=== PATIENT | male | born 1955 | race Caucasian/White ===

== ENCOUNTER 2023-02-28 08:47 | Outpatient (OUT) | payer MEDICARE, SELFPAY ==
--- NOTE | 2023-02-28 08:53 | VEIN_ITS ---
Patient: SKYLAR HOLT Exam Date: 02/28/2023 : 1955 Gender:M Ordering : IAN EPPS Admission #: [id number] Family : BRITT DYE C Order #: [id number] CLICK HERE TO VIEW EXAM RADIOLOGY REPORT PROCEDURE: VC EXT VENOUS REFLUX NORBERT LMTD COMPARISON: None. INDICATIONS: I83.813 Pain due to varicose veins of bilateral legs TECHNIQUE: Duplex imaging of the lower extremity to assess the deep and superficial venous system for the presence of deep or superficial venous incompetence and to document the location and severity of disease. The study includes evaluation of the great saphenous vein (GSV), anterior accessory saphenous vein (AASV) and small saphenous vein (SSV). Patient scanned in reverse Trendelenburg and standing. FINDINGS: RIGHT LOWER EXTREMITY: Saphenofemoral Junction Reflux: Yes 9.1mm 4.8 sec GSV: Diam (mm) Reflux/ Time (sec) Proximal Thigh 10.2 Yes 4.9 Mid Thigh 6.6 Yes 3.8 Distal Thigh 6.5 Yes 4.8 Prox Calf 7.9 Yes 4.1 Mid Calf 3.5 Yes 3.1 Saphenopopliteal Junction Reflux: 3.7mm Yes 0.3 SSV: Proximal Calf 3.8 Yes 0.5 Mid Calf 2.7 Yes 0.3 AASV: Not present Thrombi: No acute or chronic thrombus. Compressibility: Normal. Flow: Severe deep venous reflux. Preforator: Distal medial lower leg 4.0 mm with 4.2s reflux. Proximal medial lower leg 4.9 mm with 0.9s reflux. Tech Note: Thigh extension of SSV. Incompetent varicose vein medial knee measures 5.4 mm with 3.1s reflux. Mid medial lower leg varicose vein measures 6.1 mm with 1.2s reflux. Varicose vein medial distal lower leg measures 4.2 mm with 0.9s reflux. LEFT LOWER EXTREMITY: Saphenofemoral Junction Reflux: Yes 12.5 mm 4.8 sec GSV: Diam (mm) Reflux/Time (sec) Proximal Thigh 13.4 Yes 4.2 Mid Thigh 7.2 Yes 4.8 Distal Thigh 6.8 Yes 4.8 Prox Calf 7.2 Yes 4.4 Mid Calf 4.5 Yes 3.9 Saphenopopliteal Junction Relux: 2.6 mm Yes 0.4 SSV: Proximal Calf 2.8 Yes 0.3 Mid Calf 3.3 Yes 0.3 AASV: Proximal Thigh 3.2 No Mid Thigh 2.4 Yes 0.2 Distal Thigh Thrombi: No acute or chronic thrombus. Compressibility: Normal. Flow: Moderate to severe deep venous reflux. Coal Loader: Medial ankle distal to wound 4.3 mm, 1.1s reflux. Medial ankle prox to wound 4.2 mm, 1.3s reflux. Dist medial lower leg 5.3 mm, 3.7s reflux. Tech Note: Thigh extention of SSV. 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 Incompetent varicose vein proximal medial lower leg measures 10.3 mm with 4.8s reflux. Mid medial lower leg varicose vein measures 8.8 mm with 3.0s reflux. Mid lateral lower leg varicose vein measures 2.7 mm with 1.3s reflux. Varicose vein distal medial lower leg measures 5.5 mm with 1.2s reflux. CONCLUSION: 1. Severe bilateral great saphenous vein venous insufficiency with saphenofemoral junction reflux and dilatation 2. Moderate bilateral incompetent perforating veins with multiple incompetent perforating veins related to his left ankle wound 3. 4.4 cm left inguinal mass, indeterminate 4. Bilateral incompetent varicose veins measuring up to 8.8 mm Dictated by: Marino Desouza MD on 02/28/2023 at 10:09 Approved by: Marino Desouza MD on 02/28/2023 at 10:12
--- NOTE | 2023-02-28 08:53 | VEIN_ITS ---
Patient: SKYLAR HOLT Exam Date: 02/28/2023 : 1955 Gender:M Ordering : IAN CORNELIUS Admission #: [id number] Family : Order #: [id number] CLICK HERE TO VIEW EXAM RADIOLOGY REPORT PROCEDURE: FACILITY [facility] VEIN [facility] - OFFICE VISIT INITIAL COMPARISON: None. PROGRESS NOTES: 67-year-old male who presents with 10-15 years of lower extremity varicose veins. The patient developed leg aching and cramping approximately 5 years ago with significant swelling of the left leg approximately 6 months ago resulting in a nonhealing venous stasis ulceration of the left ankle. The patient was referred by Dr. Cornelius from the [facility] wound center. The patient reports that his symptoms are significantly exacerbated by prolonged sitting and standing and partially relieved by rest, leg elevation and compression stockings which she has worn intermittently for approximately 3 years. The ankle wound has progressed to approximately 2 cm and not improved over the last 2 months. The patient is semi-retired from the [email or web address]. The patient denies any signs and symptoms to suggest arterial ischemia. The patient describes a family history significant for varicose veins and Pick's disease in his father. Patient drinks alcohol daily, I did alcohol and drug counselor him on drinking only 1-2 drinks per day as a limit. No illicit or prescription drug miss use. The patient has never smoked. No known drug allergies. No surgical history. No history of deep venous thrombus or pulmonary embolus. See separate history and physical for medication list. No prior treatment for varicose or spider veins. Nursing notes were reviewed. After history and physical exam I discussed at length the pathophysiology of venous hypertension and possible treatments, therapies and strategies available. We discussed at length the importance of elevating the lower extremities above the level of the heart, increased physical activity and compression stocking use. We discussed alternatives including compression stockings with conservative treatment, surgical interventions including ligation and stripping and phlebectomy. We discussed intravenous laser ablation and micro foam chemical ablation at length. The risks benefits and alternatives were explained. The patient's questions were answered. Ultrasound venous reflux study performed the same day was discussed at length with the patient. The report demonstrates severe bilateral great saphenous vein venous insufficiency. Bilateral incompetent perforating veins. Extensive bilateral incompetent varicose veins, left greater than right PHYSICAL EXAM: The right leg demonstrates moderate varicose and reticular veins. No active ulceration. No significant subcutaneous edema. Mild hemosiderin staining. The left leg demonstrates extensive large varicose veins. 2 cm active ulceration medial left ankle. Mild to moderate subcutaneous edema distal lower leg and ankle. Moderate hemosiderin staining. Both thighs, legs and feet were symmetrically warm to the touch. Good posterior tibial and dorsalis pedis pulses were present bilaterally. [facility]IN[facility] IMPRESSION: 1. Severe bilateral great saphenous vein venous insufficiency with saphenofemoral junction reflux and dilatation. Bilateral incompetent perforating vein 2. Moderate right and severe left lower extremity varicose veins 3. Mild left lower extremity subcutaneous edema 4. No definite flow significant arterial disease 5. CEAP: 6C, Ep, As, Pr PLAN: 1. Endovenous laser ablation left great saphenous vein followed by right great saphenous vein followed by left perforating veins associated with active ulcer 2. Micro foam chemical ablation bilateral incompetent varicose vein 3. Long-term use of bilateral thigh or knee high 20-30 mm compression stockings 4. Elevated legs and continued physical activity for symptomatic relief Nurse notes, history and physical were reviewed and confirmed, see attached forms. The nurse was present throughout the physical exam and consultation Dictated by: Marino Desouza MD on 02/28/2023 at 10:37 Approved by: Marino Desouza MD on 02/28/2023 at 10:53
== END 2023-02-28 08:48 | disposition home or self-care (01) ==
LOC: VC 08:50
PROVIDERS: PCP Podiatrist Foot & Ankle Surgery; Visit Provider Podiatrist Foot & Ankle Surgery
DX: I83.813 Varicose veins of bilateral lower extremities with pain (principal)
CPT/HCPCS: 93970; G0463

== ENCOUNTER 2023-03-26 10:14 | Outpatient (OUT) | payer MEDICARE, SELFPAY ==
--- NOTE | 2023-03-26 | VEIN_ITS ---
The [address] [address] Patient Name: SKYLAR HOLT MRN: [id number] date: 1955 Sex: M Assigned Patient Location: Current Patient Location: Accession/Order Number: [id number] Exam Date: 03/26/2023 10:30 Report Date: 03/26/2023 11:55 At the request of: BELLA GARZA Procedure: VC Endovenous Ablation 1VeinLT EXAMINATION: VC Endovenous Ablation 1Vein left great saphenous vein HISTORY: Pain due to varicose veins of bilateral legs I83.813 COMPARISON: No relevant comparison available. TECHNIQUE: The risks and benefits of the procedure had been previously discussed, and were rediscussed at length. Informed written consent was obtained. Janelle Pedro and Adi Jacobs assisted. Time out procedure was performed. The left lower extremity was prepared and draped in the usual sterile fashion to allow knee flexion in the sterile field. Duplex ultrasound probe was draped in a sterile cover, sterile transmission gel was used. Venous mapping was performed with the areas of dilation and large tributaries marked. The total length was 46 cm from the entry 10 cm below the knee to 3 cm below the saphenofemoral junction. The great saphenous vein below this region was not amenable to 2 masses seen due to extensive network of overlying markedly dilated varicose veins. The diameter of the greater saphenous vein ranged from 5-13 mm. A 30 gauge needle and 1% buffered lidocaine was used to anesthetize the entry site. A 4 mm incision was made with a scalpel and the saphenous vein was entered percutaneously under direct ultrasound guidance with a micropuncture set, a single stick was successful in gaining access. A micro-guide wire was inserted and the needle removed. A micro-set including a dilator was inserted over the microwire and the needle and dilator were removed. A 0.018 guide wire was inserted through the micro-set and threaded through the saphenous vein to the saphenofemoral junction. The dilator was removed and an introducer sheath was inserted over the wire until the end of the sheath entered the saphenofemoral junction. The dilator and wire were removed and the 600 micron fiber was introduced and placed and positioned so that it extended beyond the sheath and was 3 cm peripheral to the saphenofemoral femoral junction. Final position of the fiber was determined by ultrasound guidance and duplex imaging. Tumescent anesthetic was delivered by ultrasound guidance. 200 cc of fluid was delivered along the entire course of the saphenous vein. The solution consisted of 1000 cc of normal saline with 40 mL of 1% lidocaine and 20 mL of sodium bicarbonate. A final positioning check was made. The energy source was turned on by means of the foot pedal and the fiber and sheath were withdrawn. The total number of Joules delivered was 2316. The laser was active for 289 seconds under continuous pulse, average laser use of 8 J. Laser start time 11:29 AM 03/26/2023 . Laser stop time 11:34 AM 03/26/2023 . A duplex ultrasound revealed compressibility and flow at the saphenofemoral junction immediately after the procedure. Hemostasis at the access site was achieved. The skin incision of the saphenous vein was closed with a 4 x 4. A compression stocking was applied. Postop instructions were given. A follow up appointment was recommended and scheduled. The patient tolerated the procedure well and was discharged in good condition . VEIN/VC Endovenous Ablation 1VeinLT IMPRESSION: Technically successful endovenous laser ablation of the left great saphenous vein Electronically authenticated by: BELLA GARZA Date: 03/26/2023 11:55
[2023-03-26] MEDS: 0.9 % SODIUM CHLORIDE 500 ML, LIDOCAINE HCL 20 ML, SODIUM BICARBONATE 10 MEQ INJ (10:52)
[2023-03-26] MEDS: LIDOCAINE HCL 1% 100 MG/10 ML MDV INJ (10:52)
== END 2023-03-26 10:15 | disposition home or self-care (01) ==
LOC: VC 10:14
PROVIDERS: PCP Podiatrist Foot & Ankle Surgery; Visit Provider Radiology Diagnostic Radiology
DX: I83.813 Varicose veins of bilateral lower extremities with pain (principal)
CPT/HCPCS: 36478

== ENCOUNTER 2023-03-29 09:25 | Outpatient (OUT) | payer MEDICARE, SELFPAY ==
--- NOTE | 2023-03-29 09:26 | VEIN_ITS ---
Patient: SKYLAR HOLT Exam Date: 03/29/2023 : 1955 Gender:M Ordering : DR MARINO DESOUZA M.D. Admission #: [id number] Family : Order #: [id number] CLICK HERE TO VIEW EXAM RADIOLOGY REPORT PROCEDURE: VC EXT VENOUS LT LIMITED COMPARISON: None. INDICATIONS: I80.02 Phlebitis of superficial veins of lt lower extremity TECHNIQUE: Lower extremity cordon scale and Duplex Doppler evaluation of the deep venous system from the inguinal ligament through the calf veins. FINDINGS: REGION: Left lower extremity. THROMBI: Negative for DVT. Heat induced thrombus visualized 2.8cm from the SFJ. The heat induced thrombus extends from groin to mid calf. COMPRESSIBILITY: Non-compressible segments corresponding to thrombus. FLOW: Absent flow corresponding to thrombus CONCLUSION: Post ablation occlusion the left great saphenous vein with heat induced thrombus 2.8 cm from the saphenofemoral junction Dictated by: Marino Desouza MD on 03/29/2023 at 09:56 Approved by: Marino Desouza MD on 03/29/2023 at 09:56
--- NOTE | 2023-03-29 09:26 | VEIN_ITS ---
Patient: SKYLAR HOLT Exam Date: 03/29/2023 : 1955 Gender:M Ordering : DR MARINO DESOUZA M.D. Admission #: [id number] Family : Order #: [id number] CLICK HERE TO VIEW EXAM RADIOLOGY REPORT PROCEDURE: VC FACILITY EST [facility] VEIN CENTER - OFFICE VISIT FOLLOW UP COMPARISON: None. PROGRESS NOTES: The patient reports no significant problems following intravenous laser ablation great saphenous veins. The patient did wear his compression stocking. The patient has followed our recommendations to walk 20-30 minutes once or twice per day since the procedure. Physical exam demonstrates several areas of bruising in the left medial thigh and knee consistent with the procedure. No areas of erythema or warmth. No cellulitis or thrombophlebitis. No active ulceration. Thrombosed left great saphenous vein can be partially palpated Review of the ultrasound performed the same day demonstrates occlusive thrombus extending throughout the treated left great saphenous vein with heat induced thrombus 2.8 cm from the saphenofemoral junction. The patient expressed a desire to proceed with treatment of incompetent right great saphenous vein. VEIN/VC Facility EST LMTD IMPRESSION: 1. Successful ablation of the left great saphenous vein 2. Persistent incompetent right great saphenous vein. PLAN: Intravenous laser ablation right great saphenous vein Nurse notes, history and physical were reviewed and confirmed, see attached forms. The nurse was present throughout the physical exam and consultation Dictated by: Marino Desouza MD on 03/29/2023 at 10:06 Approved by: Marino Desouza MD on 03/29/2023 at 10:57
== END 2023-03-29 09:26 | disposition home or self-care (01) ==
LOC: VC 09:25
PROVIDERS: PCP Podiatrist Foot & Ankle Surgery; Visit Provider Radiology Diagnostic Radiology
DX: I80.02 Phlebitis and thrombophlebitis of superficial vessels of left lower extremity (principal)
CPT/HCPCS: 93971; G0463

== ENCOUNTER 2023-04-05 08:19 | Outpatient (OUT) | payer MEDICARE, SELFPAY ==
--- NOTE | 2023-04-05 08:22 | VEIN_ITS ---
The [address] [address] Patient Name: SKYLAR HOLT MRN: [id number] date: 1955 Sex: M Assigned Patient Location: Current Patient Location: Accession/Order Number: [id number] Exam Date: 04/05/2023 08:22 Report Date: 04/05/2023 09:46 At the request of: BELLA GARZA Procedure: VC Endovenous Ablation 1VeinRT EXAMINATION: VC Endovenous Ablation 1VeinRT HISTORY: I83.813 Painful varicose veins of bilat lower extremities The risks and benefits of the procedure had been previously discussed, and were rediscussed at length. Informed written consent was obtained. Maine Chase RN and Ana Handley RDMS, RVT assisted. Time out procedure was performed. The right lower extremity was prepared and draped in the usual sterile fashion to allow knee flexion in the sterile field. Duplex ultrasound probe was draped in a sterile cover, sterile transmission gel was used. Venous mapping was performed with the areas of dilation and large tributaries marked. The total length was 69 cm from the entry 3 cm above the ankle to 3 cm below the Saphenofemoral junction. The diameter of the right great saphenous vein ranged from 10.2 mm. A 30 gauge needle and 1% buffered lidocaine was used to anesthetize the entry site. A 4 mm incision was made with a scalpel and the saphenous vein was entered percutaneously under direct ultrasound guidance with a micropuncture set, a single stick was successful in gaining access. A micro-guide wire was inserted and the needle removed. A micro-set including a dilator was inserted over the microwire and the needle and dilator were removed. A guide wire was inserted through the micro-set and guided through the saphenous vein to the saphenofemoral junction. The dilator was removed and an introducer sheath was inserted over the wire until the end of the sheath entered the saphenofemoral junction. The dilator and wire were removed and the 600 micron fiber was introduced and placed and positioned so that it extended beyond the sheath and was 3 cm distal to the saphenofemoral or saphenopopliteal junction. Final position of the fiber was determined by ultrasound guidance and duplex imaging. Tumescent anesthetic was delivered by ultrasound guidance. 200 cc of fluid was delivered along the entire course of the saphenous vein. The solution consisted of 1000 cc of normal saline with 40 mL of 1% lidocaine and 20 mL of sodium bicarbonate. A final positioning check was made. The energy source was turned on by means of the foot pedal and the fiber and sheath were withdrawn. The total number of Joules delivered was 3766. The laser was active for 471 seconds under continuous pulse, average laser use of 8 J. Laser start time 9:13 AM, 04/05/2023. Laser stop time 9:21 AM, 04/05/2023. A duplex ultrasound revealed compressibility and flow at the saphenofemoral junction immediately after the procedure. Hemostasis at the access site was achieved. The skin incision of the saphenous vein was closed with a 4 x 4. A compression stocking was applied. Postop instructions were given. A follow up appointment was recommended and scheduled. The patient tolerated the procedure well. Electronically authenticated by: JOE SOUZA Date: 04/05/2023 09:46
[2023-04-05] MEDS: LIDOCAINE HCL 1% 100 MG/10 ML MDV INJ (08:56)
[2023-04-05] MEDS: 0.9 % SODIUM CHLORIDE 500 ML, LIDOCAINE HCL 20 ML, SODIUM BICARBONATE 10 MEQ INJ (08:57)
== END 2023-04-05 08:20 | disposition home or self-care (01) ==
LOC: VC 08:19
PROVIDERS: PCP Podiatrist Foot & Ankle Surgery; Visit Provider Radiology Diagnostic Radiology
DX: I83.813 Varicose veins of bilateral lower extremities with pain (principal)
CPT/HCPCS: 36478

== ENCOUNTER 2023-04-11 07:51 | Outpatient (OUT) | payer MEDICARE, SELFPAY ==
--- NOTE | 2023-04-11 | VEIN_ITS ---
Patient: SKYLAR HOLT Exam Date: 04/11/2023 : 1955 Gender:M Ordering : DR MARINO DESOUZA M.D. Admission #: [id number] Family : Order #: [id number] CLICK HERE TO VIEW EXAM RADIOLOGY REPORT PROCEDURE: [facility] EST [facility]IN C[facility] - OFFICE VISIT FOLLOW UP [facility] PROGRESS NOTES: The patient reports no problems following intravenous laser ablation of the right great saphenous vein. The patient did not require oral analgesics. The patient has worn his compression stockings. The patient has followed our recommendations to walk 20-30 minutes once or twice per day since the procedure. Physical exam demonstrates no areas of erythema or warmth. No evidence of cellulitis or thrombophlebitis. No active ulceration. Thrombosed right great saphenous vein can be partially palpated. Review of the ultrasound performed the same day demonstrates occlusive thrombus extending throughout the treated right great saphenous vein with no deep vein thrombus. Heat induced thrombus is 1.3 cm from the saphenofemoral junction. The patient expressed a desire to proceed with treatment of incompetent left leg perforating veins with an associated venous stasis ulceration. VEIN/[facility] EST LMTD IMPRESSION: 1. Successful ablation of the right great saphenous vein 2. Persistent incompetent left leg perforating veins with associated venous stasis ulceration. PLAN: Intravenous laser ablation left leg incompetent perforating veins Nurse notes, history and physical were reviewed and confirmed, see attached forms. The nurse was present throughout the physical exam and consultation Dictated by: Marino Desouza MD on 04/11/2023 at 08:38 Approved by: Marino Desouza MD on 04/11/2023 at 08:41
--- NOTE | 2023-04-11 | VEIN_ITS ---
Patient: SKYLAR HOLT Exam Date: 04/11/2023 : 1955 Gender:M Ordering : DR MARINO DESOUZA M.D. Admission #: [id number] Family : Order #: [id number] CLICK HERE TO VIEW EXAM RADIOLOGY REPORT PROCEDURE: VC EXT VENOUS RT LMTD COMPARISON: None. INDICATIONS: I80.01 Phlebitis of superficial veins of rt lower extremity TECHNIQUE: Lower extremity cordon scale and Duplex Doppler evaluation of the deep venous system from the inguinal ligament through the calf veins. FINDINGS: REGION: Right lower extremity. THROMBI: Negative for DVT. Heat induced thrombus visualized 1.3 cm from the saphenofemoral junction and extends from proximal GSV to distal lower leg GSV. COMPRESSIBILITY: Noncompressibility corresponding to thrombus FLOW: Absent flow corresponding to thrombus CONCLUSION: Post ablation occlusion of the right great saphenous vein with heat induced thrombus 1.3 cm from the saphenofemoral junction Dictated by: Marino Desouza MD on 04/11/2023 at 08:24 Approved by: Marino Desouza MD on 04/11/2023 at 08:25
== END 2023-04-11 07:52 | disposition home or self-care (01) ==
LOC: VC 07:51
PROVIDERS: PCP Podiatrist Foot & Ankle Surgery; Visit Provider Radiology Diagnostic Radiology
DX: I80.01 Phlebitis and thrombophlebitis of superficial vessels of right lower extremity (principal)
CPT/HCPCS: 93971; G0463

== ENCOUNTER 2023-04-19 07:53 | Outpatient (OUT) | payer MEDICARE, SELFPAY ==
--- NOTE | 2023-04-19 07:54 | VEIN_ITS ---
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 A sterile cover was draped over a 16 mhz ultrasound probe. Venous mapping was performed prior to the procedure noting location and size of vessel(s). Oven Baker vein 1: Minimal medial lower left leg. The diameter of the vein ranged from 4.3 mm's below the muscular fascia to 4.3 mm's at the entry point. Using a 30 gauge needle the entry site was anesthetized with 1 cc of 1% buffered lidocaine. Access was gained percutaneously, with a 21-gauge needle, into the certifed refrigeration operator vein under ultrasound guidance. The needle was advanced into the desired position and the pre-measured 400-micron fiber was then inserted into the needle and locked in place. The position of the fiber was imaged with ultrasound guidance. The fiber tip was visualized to be 10 mm from the deep vessel. An anesthetic solution of 4 cc 1% buffered lidocaine was delivered along the course of the vein under ultrasound guidance using a syringe. A final positioning check of the laser fiber tip was performed. The laser was activated by means of a foot-pedal and the fiber and needle were withdrawn together in accordance to the desired joules per treatment area/spot weld. 2 areas/spot welds were performed, and the total number of joules delivered was 136. The total time of energy delivery was 22 seconds. A duplex ultrasound revealed compressibility and flow of the deep system immediately after the procedure. Hemostasis of the access site was achieved and dressed. A 20-30 mm compression stocking over coban was placed on the treated leg. Post-Op instructions were given, and a follow-up appointment was made. CONCLUSION: 1. Technically successful endovenous laser ablation of mid medial lower left leg certifed refrigeration operator vein Electronically authenticated by: JOE SOUZA Date: 04/19/2023 09:10
[2023-04-19] MEDS: LIDOCAINE HCL 20 ML, SODIUM BICARBONATE 2 MEQ INJ (08:22)
== END 2023-04-19 07:54 | disposition home or self-care (01) ==
LOC: VC 07:53
PROVIDERS: PCP Podiatrist Foot & Ankle Surgery; Visit Provider Radiology Diagnostic Radiology
DX: I83.813 Varicose veins of bilateral lower extremities with pain (principal)
CPT/HCPCS: 36478

== ENCOUNTER 2023-04-26 12:56 | Outpatient (OUT) | payer MEDICARE, SELFPAY ==
--- NOTE | 2023-04-26 | VEIN_ITS ---
[address] [address] Patient Name: SKYLAR HOLT MRN: [id number] date: 1955 Sex: M Assigned Patient Location: Current Patient Location: Accession/Order Number: [id number] Exam Date: 04/26/2023 13:00 Report Date: 04/26/2023 14:41 At the request of: BELLA GARZA Procedure: VC INJ Foam Sclerosant WUS PROJECTION WELDING MACHINE OPERATOR PROCEDURE: VC INJ Foam Sclerosant WUS PROJECTION WELDING MACHINE OPERATOR COMPARISON: None. HISTORY: Pain due to varicose veins of bilateral legs I83.813 Pre-operative Diagnosis: CEAP class C6 venous insufficiency with pain, tenderness, edema and incompetent left saphenous and varicose vein(s), chronic venous insufficiency left leg secondary to venous incompetence Post-operative Diagnosis: CEAP class C6 venous insufficiency with pain, tenderness, edema and incompetent left saphenous and varicose vein(s), chronic venous insufficiency left leg secondary to venous incompetence Procedure Performed: 1. Ultrasound-guided microfoam chemical ablation with Varithenaregistered 2. Intraoperative ultrasound guidance Anesthesia: None Indications for Procedure: 67-year-old male who presents with a long history of lower extremity pain and swelling in varicose veins and venous stasis ulceration. The patient failed conservative medical therapy including medical compression stockings, exercise and analgesics. Prior procedures include . Multiple incompetent varicosities of the left leg. Duplex scan showed reflux and enlarged diameters up to 8 mm. The patient underwent informed consent including management options where the complications of infection, bleeding, pain, and skin injury were discussed. Particular attention was spent discussing thrombus extension and deep vein thrombosis as well as the possibility of pulmonary embolus and treatment with oral or injectable blood thinners. Procedure: The patient walked to the procedure room. All applicable staff donned appropriate apparel. A procedure timeout was performed to confirm correct patient, correct extremity, correct procedure, and correct room set-up including presence of all applicable supplies, devices, and drugs. A duplex ultrasound, performed by myself confirmed the location and incompetence of branch saphenous varicosities and their course was marked on the skin together with the dilated tributaries. The extent of treatment of the vein and the associated varicosities was determined through ultrasound mapping. The skin was prepped and then punctured with a butterfly needle and advanced under ultrasound guidance. The Varithenaregistered canister was activated and the canister was primed and purged as required in the instructions for use. Varithenaregistered was drawn into a sterile syringe. The following injections were made: 10 cc injected into the left great saphenous vein at the level of the ankle, the great saphenous vein was dilated measuring 5 mm 5 cc injected into incompetent 8mm varicose vein mid medial left lower leg Varithenaregistered was slowly administered at 0.5-1.0 cc/second with close observation by ultrasound of its course in the vessels. Total volume utilized was: 15 cc. Following administration of Varithenaregistered the leg was elevated and the patient was asked to repeatedly dorsiflex the ankle to limit flow of Varithenaregistered into perforating veins. Once appropriate spasm had been confirmed in the treated veins, the vascular catheter was removed from the leg and light pressure was applied over the puncture site for hemostasis. The common femoral and deep superficial veins were then evaluated for flow and compressibility prior to dressing placement. The lower extremity was kept elevated at 45 degrees above the horizontal and cording material was applied over the saphenous segments and tributaries to allow for eccentric compression over the target vessels including the targeted saphenous vein(s). A multilayer dressing was applied consisting of foam pads, coban and thigh-high 20-30 mm Hg compression elastic support hose were placed on the patient. The leg was lowered only after compression had been applied and the patient was immediately ambulatory. The patient ambulated 10 minutes under supervision and was without apparent concerns at time of release. Post-care instructions include advising patient to keep post-treatment bandages in place and dry for 48 hours, avoid extended periods of inactivity, avoid heavy exercise for one week, wear compression stockings on the treated leg continuously for two weeks, to walk daily for 10 minutes over the next month. The patient was instructed to take an anti-inflammatory medicine as needed and to follow up for color duplex scan of the Saphenous veins, the treated branch saphenous varicosities, the adjacent deep veins, and additional treatment within 7 days. PERSONNEL: Adi Jacobs RN Electronically authenticated by: BELLA GARZA Date: 04/26/2023 14:41
== END 2023-04-26 12:57 | disposition home or self-care (01) ==
LOC: VC 12:56
PROVIDERS: PCP Radiology Diagnostic Radiology; Visit Provider Radiology Diagnostic Radiology
DX: I83.813 Varicose veins of bilateral lower extremities with pain (principal)
CPT/HCPCS: 36466

== ENCOUNTER 2023-05-03 08:31 | Outpatient (OUT) | payer MEDICARE, SELFPAY ==
--- NOTE | 2023-05-03 08:34 | VEIN_ITS ---
Patient Name: SKYLAR HOLT MR#: [id number] : 1955 Exam Date: 05/03/2023 Ordering Doctor: DR BELLA GARZA M.D. RADIOLOGY REPORT PROCEDURE: VC EXT VENOUS LT LIMITED COMPARISON: VC EXT VENOUS LT LIMITED, 03/29/2023. INDICATIONS: Phlebitis of superficial vein of lt lower extremity I80.02 TECHNIQUE: Lower extremity cordon scale and Duplex Doppler evaluation of the deep venous system from the inguinal ligament through the calf veins. FINDINGS: REGION: Left lower extremity. THROMBI: Negative for DVT. Heat induced thrombus visualized at mid/medial premium note interest calculator clerk. Varithena induced thrombus visualized at mid/med calf and dist/med calf. COMPRESSIBILITY: Non-compressible segments corresponding to thrombus FLOW: Areas of no flow. OTHER: Patent distal GSV 4.4mm with 1.8s reflux. CONCLUSION: 1. Successful ablation of left leg premium note interest calculator clerk veins and treated branch saphenous varicosities. Dictated by: Alexandr Singh M.D. on 05/03/2023 at 09:18 Approved by: Alexandr Singh M.D. on 05/03/2023 at 09:20
--- NOTE | 2023-05-03 08:34 | VEIN_ITS ---
Patient Name: SKYLAR HOLT MR#: [id number] : 1955 Exam Date: 05/03/2023 Ordering Doctor: DR BELLA GARZA M.D. RADIOLOGY REPORT PROCEDURE: [facility] - OFFICE VISIT FOLLOW UP [facility] PROGRESS NOTES: The patient reports improvement in leg symptoms. There has been interval reduction in varicosities. The patient has followed our recommendations to walk 20-30 minutes once or twice per day since the procedure. Physical exam demonstrates decrease in varicosities of the leg. Persistent superficial varicosities are identified along the right leg. Review of the ultrasound performed the same day demonstrates occlusive thrombus extending throughout the treated vein(s), see separate report, consistent with a successful ablation. No thrombus extending into or beyond the saphenofemoral junction. The patient expressed a desire to proceed with treatment of right leg varicosities. The patient was informed that treatment was a process and would require several procedures/sessions. [facility] IM[facility]: 1. Successful ablation of the left returned goods repairer vein and treated branch saphenous vein(s). 2. Persistent distal GSV which is partially thrombosed, and right leg branch saphenous veins and lower extremity symptoms. PLAN: 1. Microfoam chemical ablation of right leg incompetent branch saphenous varicosities. 2. Distal left GSV can be re-evaluated on follow-up ultrasound and treated with microfoam if needed. Nurse notes, history and physical were reviewed and confirmed, see attached forms. The nurse was present throughout the physical exam and consultation Dictated by: Alexandr Singh M.D. on 05/03/2023 at 09:20 Approved by: Alexandr Singh M.D. on 05/03/2023 at 09:22
== END 2023-05-03 08:32 | disposition home or self-care (01) ==
LOC: VC 08:31
PROVIDERS: PCP Radiology Diagnostic Radiology; Visit Provider Radiology Diagnostic Radiology
DX: I80.03 Phlebitis and thrombophlebitis of superficial vessels of lower extremities, bilateral (principal)
CPT/HCPCS: 93971; G0463

== ENCOUNTER 2023-05-10 10:50 | Outpatient (OUT) | payer MEDICARE, SELFPAY ==
--- NOTE | 2023-05-10 10:52 | VEIN_ITS ---
The [address] [address] Patient Name: SKYLAR HOLT MRN: [id number] date: 1955 Sex: M Assigned Patient Location: Current Patient Location: Accession/Order Number: [id number] Exam Date: 05/10/2023 10:52 Report Date: 05/10/2023 15:09 At the request of: BELLA GARZA Procedure: VC INJ Foam Sclerosant WUS TEACHER OF THE DEAF/HARD OF HEARING PROCEDURE: VC INJ Foam Sclerosant WUS TEACHER OF THE DEAF/HARD OF HEARING COMPARISON: None. HISTORY: I83.813 Painful varicose veins of bilat lower extremities Pre-operative Diagnosis: CEAP class C6 venous insufficiency with pain, tenderness, edema and incompetent right saphenous and varicose vein(s), chronic venous insufficiency right leg secondary to venous incompetence Post-operative Diagnosis: CEAP class C6 venous insufficiency with pain, tenderness, edema and incompetent right saphenous and varicose vein(s), chronic venous insufficiency right leg secondary to venous incompetence Procedure Performed: 1. Ultrasound-guided microfoam chemical ablation with Varithenaregistered 2. Intraoperative ultrasound guidance Anesthesia: None Indications for Procedure: 67-year-old male who presents with a long history of lower extremity pain swelling, resulting in venous stasis ulcerations. The patient failed conservative medical therapy including medical compression stockings, exercise and analgesics. Prior procedures include intravenous laser ablation likely from compression. Multiple incompetent varicosities of the right leg. Duplex scan showed reflux and enlarged diameters up to 5 mm. The patient underwent informed consent including management options where the complications of infection, bleeding, pain, and skin injury were discussed. Particular attention was spent discussing thrombus extension and deep vein thrombosis as well as the possibility of pulmonary embolus and treatment with oral or injectable blood thinners. Procedure: The patient walked to the procedure room. All applicable staff donned appropriate apparel. A procedure timeout was performed to confirm correct patient, correct extremity, correct procedure, and correct room set-up including presence of all applicable supplies, devices, and drugs. A duplex ultrasound, performed by myself confirmed the location and incompetence of branch saphenous varicosities and their course was marked on the skin together with the dilated tributaries. The extent of treatment of the vein and the associated varicosities was determined through ultrasound mapping. The skin was prepped and then punctured with a butterfly needle and advanced under ultrasound guidance. The Varithenaregistered canister was activated and the canister was primed and purged as required in the instructions for use. Varithenaregistered was drawn into a sterile syringe. The following injections were made: 6 cc injected into a dilated distal right great saphenous vein measuring 5 mm 6 cc injected into a 4 mm varicose vein distal medial left lower leg 3 cc injected into a 4 mm varicose vein left mid medial leg Varithenaregistered was slowly administered at 0.5-1.0 cc/second with close observation by ultrasound of its course in the vessels. Total volume utilized was: 15 cc. Following administration of Varithenaregistered the leg was elevated and the patient was asked to repeatedly dorsiflex the ankle to limit flow of Varithenaregistered into perforating veins. Once appropriate spasm had been confirmed in the treated veins, the vascular catheter was removed from the leg and light pressure was applied over the puncture site for hemostasis. The common femoral and deep superficial veins were then evaluated for flow and compressibility prior to dressing placement. The lower extremity was kept elevated at 45 degrees above the horizontal and cording material was applied over the saphenous segments and tributaries to allow for eccentric compression over the target vessels including the targeted saphenous vein(s). A multilayer dressing was applied consisting of foam pads, coban and thigh-high 20-30 mm Hg compression elastic support hose were placed on the patient. The leg was lowered only after compression had been applied and the patient was immediately ambulatory. The patient ambulated 10 minutes under supervision and was without apparent concerns at time of release. Post-care instructions include advising patient to keep post-treatment bandages in place and dry for 48 hours, avoid extended periods of inactivity, avoid heavy exercise for one week, wear compression stockings on the treated leg continuously for two weeks, to walk daily for 10 minutes over the next month. The patient was instructed to take an anti-inflammatory medicine as needed and to follow up for color duplex scan of the Saphenous veins, the treated branch saphenous varicosities, the adjacent deep veins, and additional treatment within 7 days. PERSONNEL: Aid Jacobs RN Electronically authenticated by: BELLA GARZA Date: 05/10/2023 15:09
== END 2023-05-10 10:51 | disposition home or self-care (01) ==
LOC: VC 10:51
PROVIDERS: PCP Radiology Diagnostic Radiology; Visit Provider Radiology Diagnostic Radiology
DX: I83.813 Varicose veins of bilateral lower extremities with pain (principal)
CPT/HCPCS: 36466

== ENCOUNTER 2023-05-16 11:20 | Outpatient (OUT) | payer MEDICARE, SELFPAY ==
--- NOTE | 2023-05-16 11:23 | VEIN_ITS ---
Patient Name: SKYLAR HOLT MR#: [id number] : 1955 Exam Date: 05/16/2023 Ordering Doctor: DR BELLA GARZA M.D. RADIOLOGY REPORT PROCEDURE: [facility] - OFFICE VISIT FOLLOW UP [facility] PROGRESS NOTES: The patient reports improvement in leg symptoms. There has been interval reduction in varicosities. The patient has followed our recommendations to walk 20-30 minutes once or twice per day since the procedure. Physical exam demonstrates decrease in varicosities of the leg. No remaining varicosities. Review of the ultrasound performed the same day demonstrates occlusive thrombus extending throughout the treated vein(s), see separate report, consistent with a successful ablation. No thrombus extending into or beyond the saphenofemoral junction. The patient was informed that no further treatment was needed at this time. [facility]: 1. Successful ablation of the treated bilateral branch saphenous vein(s). 2. No remaining treatable varicosities. PLAN: Follow-up in future as needed. Nurse notes, history and physical were reviewed and confirmed, see attached forms. The nurse was present throughout the physical exam and consultation Dictated by: Alexandr Singh M.D. on 05/16/2023 at 11:51 Approved by: Alexandr Singh M.D. on 05/16/2023 at 11:52
--- NOTE | 2023-05-16 11:23 | VEIN_ITS ---
Patient Name: SKYLAR HOLT MR#: [id number] : 1955 Exam Date: 05/16/2023 Ordering Doctor: DR BELLA GARZA M.D. RADIOLOGY REPORT PROCEDURE: VC EXT VENOUS LT LIMITED COMPARISON: VC EXT VENOUS LT LIMITED, 05/03/2023. INDICATIONS: I80.02 Phlebitis of superficial veins of lt lower extremity TECHNIQUE: Lower extremity cordon scale and Duplex Doppler evaluation of the deep venous system from the inguinal ligament through the calf veins. FINDINGS: REGION: Left lower extremity. THROMBI: Negative for DVT. Varithena induced thrombus visualized at dist/med calf and mid/med calf. COMPRESSIBILITY: Non-compressible segments corresponding to thrombus FLOW: Areas of no flow corresponding to thrombus OTHER: No patent varicose veins remain. CONCLUSION: 1. Successful post ablation occlusion of treated bilateral lower extremity branch saphenous varicosities. No remaining varicosities bilaterally. Dictated by: Alexandr Singh M.D. on 05/16/2023 at 11:48 Approved by: Alexandr Singh M.D. on 05/16/2023 at 11:50
== END 2023-05-16 11:21 | disposition home or self-care (01) ==
LOC: VC 11:20
PROVIDERS: PCP Radiology Diagnostic Radiology; Visit Provider Radiology Diagnostic Radiology
DX: I80.01 Phlebitis and thrombophlebitis of superficial vessels of right lower extremity (principal)
CPT/HCPCS: 93971; G0463